=== PATIENT | female | born 1945 | race African-American/Black ===

== ENCOUNTER 2019-06-14 10:58 | Inpatient (IN) ==
[~2019-06-14 10:58] MED LIST: ASPIRIN 325 MG TABLET PO ONE; DIAZEPAM 5 MG TABLET PO ONE; MAGNESIUM SULF RIDER 2 GM in PREMIX 1 EACH IV PRN; POTASSIUM CHLORIDE RIDER 10 MEQ in PREMIX 1 EACH IV PRN; diphenhydrAMINE CAP 25 MG CAPSULE PO ONE
[2019-06-14] MEDS ORDERED: DIAZEPAM 5 MG TABLET ONE (11:34)
[2019-06-14] MEDS ORDERED: diphenhydrAMINE CAP 25 MG CAPSULE ONE (11:34)
[2019-06-14] MEDS ORDERED: ASPIRIN 325 MG TABLET ONE (11:34)
[2019-06-14] MEDS ORDERED: HEPARIN/NACL 0.9% 2 UNITS/ML 1,000 ML IV ONE (11:34)
[2019-06-14] MEDS ORDERED: LIDOCAINE 1% 20 ML VIAL ONE (11:34)
[2019-06-14 11:36] LABS: Basophils % 0.5 % (0.0-0.8); Eosinophils # 0.2 10*3/uL (0.0-0.87); Eosinophils % 2.1 % (0.00-10.9); Hematocrit 42.4 VOL% (35.7-47.0); Hemoglobin 13.9 GM/DL (12.0-16.0); Immature Granulocytes % 0.3 %; Immature Granulocytes Absolute 0.03 #; Lymphocytes % 35.1 % (21.3-54.2); Mean Corpuscular HGB Conc 32.8 GM/DL (32-36); Mean Corpuscular Volume 89.3 FL (87-102); Mean Platelet Volume 10.7 FL (9.6-12.0); Monocytes % 9.3 % (1.7-12.7); Neutrophils % 52.7 % (38.7-73.9); Platelet Count 278 T/CUMM (130-400); Red Blood Count 4.75 MC/CUMM (3.8-5.5); White Blood Count 8.6 T/CUMM (4-12)
[2019-06-14] MEDS: SODIUM CHLORIDE 0.9% 1,000 ML IV SCH ×3 (11:37→17:33)
[2019-06-14 11:45] LABS: PT Patient Result 10.5 SECS (9.6-12.2)
[2019-06-14] MEDS ORDERED: MIDAZOLAM 2 MG/2 ML VIAL ONE (13:49)
[2019-06-14] MEDS ORDERED: HYDROmorphone 2 MG/1 ML VIAL ONE (13:49)
[2019-06-14] MEDS ORDERED: LABETALOL 20 MG/4 ML SYRINGE IV ONE ×2 (14:24→15:18)
[2019-06-14] MEDS ORDERED: BIVALIRUDIN 250 MG VIAL IV ONE (14:41)
[2019-06-14] MEDS ORDERED: HEPARIN/NACL 0.9% 2 UNITS/ML 500 ML IV ONE (14:46)
[2019-06-14] MEDS ORDERED: TICAGRELOR 90 MG TABLET ONE (15:18)
[2019-06-14] MEDS ORDERED: GLUCAGON 1 MG VIAL IM PRN (15:26)
[2019-06-14] MEDS ORDERED: NITROGLYCERIN SL 0.4 MG TABLET SL PRN (15:26)
[2019-06-14] MEDS ORDERED: ZALEPLON 5 MG CAPSULE PO PRN (15:26)
[2019-06-14] MEDS ORDERED: ONDANSETRON 4 MG/2 ML VIAL IV PRN (15:26)
[2019-06-14] MEDS ORDERED: DEXTROSE 50% 25 GM/50 ML VIAL IV PRN (15:26)
[2019-06-14] MEDS: INSULIN NPH/REGULAR 70/30 100 UNIT/ML SUBCUT SCH (17:21)
[2019-06-14 20:42] LABS: Basophils # 0.1 10*3/uL (0.0-0.2); Basophils % 0.3 % (0.0-0.8); Eosinophils # 0.1 10*3/uL (0.0-0.87); Eosinophils % 0.5 % (0.00-10.9); Hematocrit 29.2 VOL% (35.7-47.0); Immature Granulocytes Absolute 0.15 #; Lymphocytes % 26.7 % (21.3-54.2); Mean Corpuscular HGB Conc 30.8 GM/DL (32-36); Mean Corpuscular Volume 94.5 FL (87-102); Mean Platelet Volume 11.3 FL (9.6-12.0); Monocytes % 6.5 % (1.7-12.7); Platelet Count 252 T/CUMM (130-400); Red Blood Count 3.09 MC/CUMM (3.8-5.5); Red Cell Distribution Width 13.2 % (9.3-17.3); White Blood Count 14.9 T/CUMM (4-12)
[2019-06-14 20:58] LABS: Calcium 7.6 MG/DL (8.5-10.1); Osmolality,Calculated 286.1 MOS/KG (273-304)
[2019-06-14] MEDS ORDERED: METOPROLOL TARTRATE 100 MG TABLET PO SCH (21:00)
[2019-06-14] MEDS ORDERED: ATROPINE 1 MG/10 ML SYRINGE IV ONE ×2 (21:12→21:30)
[2019-06-14] MEDS ORDERED: SODIUM CHLORIDE 0.9% 1,000 ML IV ONE ×2 (21:15→22:10)
[2019-06-14] MEDS ORDERED: NOREPINEPHRINE 8 MG in SODIUM CHLORIDE 0.9% 242 ML IV PRN (21:16)
[2019-06-14] MEDS ORDERED: ETOMIDATE 20 MG/10 ML VIAL IV ONE (21:20)
[2019-06-14] MEDS ORDERED: ROCURONIUM 100 MG/10 ML VIAL IV ONE (21:20)
[2019-06-14] MEDS ORDERED: ATROPINE 1 MG/10 ML SYRINGE ONE (21:23)
[2019-06-14] MEDS ORDERED: PHENYLEPHRINE DRIP 40 MG/250 ML PREMIX IV ONE (21:48)
[2019-06-14 23:05] LABS: Hematocrit 32.7 VOL% (35.7-47.0)
[2019-06-14] MEDS ORDERED: SODIUM CHLORIDE 0.9% 1,000 ML IV PRN (23:22)
[2019-06-14 23:45] LABS: Hematocrit 35.7 VOL% (35.7-47.0)
[2019-06-15] MEDS ORDERED: VANCOMYCIN INJ 1,750 MG in SODIUM CHLORIDE 0.9% 500 ML IV SCH
[2019-06-15] MEDS ORDERED: ceFAZolin 1,000 MG VIAL ONE (01:00)
[2019-06-15] MEDS ORDERED: SEVOFLURANE 1 UNIT/15 MINUTE INH ONE (02:32)
[2019-06-15] MEDS ORDERED: SODIUM CHLORIDE 0.9% 1,000 ML IV ONE ×2 (02:33→03:59)
[2019-06-15] MEDS ORDERED: MIDAZOLAM 10 MG/2 ML VIAL ONE (02:33)
[2019-06-15] MEDS ORDERED: ROCURONIUM 100 MG/10 ML VIAL IV ONE (02:33)
[2019-06-15] MEDS: TICAGRELOR 90 MG TABLET PO SCH ×3 (03:29→20:09)
[2019-06-15 04:08] LABS: Calcium 6.7 MG/DL (8.5-10.1); Osmolality,Calculated 291.3 MOS/KG (273-304)
[2019-06-15] MEDS: SODIUM CHLORIDE 0.9% 1,000 ML IV SCH ×3 (04:10→19:47)
[2019-06-15] MEDS: MEROPENEM 500 MG in SODIUM CHLORIDE 0.9% 100 ML IV SCH ×3 (04:20→19:46)
[2019-06-15 05:17] LABS: Basophils # 0.1 10*3/uL (0.0-0.2); Basophils % 0.4 % (0.0-0.8); Hematocrit 44.9 VOL% (35.7-47.0); Immature Granulocytes % 2.7 %; Immature Granulocytes Absolute 0.77 #; Lymphocytes # 1.9 10*3/uL (1.4-4.0); Lymphocytes % 6.6 % (21.3-54.2); Mean Corpuscular HGB Conc 32.1 GM/DL (32-36); Mean Corpuscular Volume 92.2 FL (87-102); Mean Platelet Volume 10.9 FL (9.6-12.0); NRBC # 0.11 10*3/uL; Neutrophils % 87.3 % (38.7-73.9); Red Cell Distribution Width 14.1 % (9.3-17.3)
[2019-06-15 05:23] LABS: Hemoglobin 14.4 GM/DL (12.0-16.0); Platelet Count 142 T/CUMM (130-400); Red Blood Count 4.87 MC/CUMM (3.8-5.5); White Blood Count 28.1 T/CUMM (4-12)
[2019-06-15] MEDS: NOREPINEPHRINE 16 MG in SODIUM CHLORIDE 0.9% 234 ML IV PRN ×3 (05:56→22:36)
[2019-06-15 06:05] LABS: Calcium 6.7 MG/DL (8.5-10.1); Osmolality,Calculated 293.8 MOS/KG (273-304)
[2019-06-15] MEDS ORDERED: DEXTROSE 50% 25 GM/50 ML VIAL IV ONE (06:19)
[2019-06-15] MEDS ORDERED: SODIUM POLYSTYRENE SULFATE 15 GM/60 ML BOTTLE NG ONE (06:19)
[2019-06-15] MEDS ORDERED: INSULIN REGULAR 100 UNIT/ML IV ONE (06:20)
[2019-06-15 06:36] LABS: ABG Base Excess -13.9 MMOL/L (-2.5-2.5); ABG HCO3 11.5 MMOL/L (20-26); ABG Oxygen Saturation 99.6 % (95-100); ABG PCO2 26.8 MM HG (35-48); ABG PH 7.252 (7.35-7.45); ABG TCO2 12.4 MMOL/L (23-27)
[2019-06-15 06:52] LABS: Band Neutrophils 13 % (0-10); Hypersegmented Neutrophil 2+; Lymphocytes 4 % (20-55); Metamyelocytes 1 %; Myelocytes 1 %; Nucleated Red Blood Cells 2 (0-5); Platelet Estimate Decreased; Segmented Neutrophils 78 % (50-85)
[2019-06-15 06:53] LABS: Total Cells Counted 100
[2019-06-15] MEDS ORDERED: CALCIUM GLUCONATE 2,000 MG in SODIUM CHLORIDE 0.9% 100 ML IV ONE (07:00)
[2019-06-15] MEDS ORDERED: lisinopriL 10 MG TABLET PO SCH (09:00)
[2019-06-15] MEDS ORDERED: ASPIRIN CHEW 81 MG TABLET PO SCH (09:00)
[2019-06-15] MEDS ORDERED: PANTOPRAZOLE 40 MG TABLET PO SCH (09:00)
[2019-06-15] MEDS ORDERED: SIMVASTATIN 10 MG TABLET PO SCH (09:00)
[2019-06-15] MEDS ORDERED: hydroCHLOROthiazide 25 MG TABLET PO SCH (09:00)
[2019-06-15] MEDS: INSULIN NPH/REGULAR 70/30 100 UNIT/ML SUBCUT SCH ×2 (09:25→18:35)
[2019-06-15 10:31] LABS: ABG HCO3 12.2 MMOL/L (20-26); ABG Oxygen Saturation 98.6 % (95-100); ABG PCO2 24.4 MM HG (35-48); ABG PH 7.317 (7.35-7.45); ABG PO2 184.3 MM HG (80-95)
[2019-06-15] MEDS: PANTOPRAZOLE 40 MG VIAL IV SCH (11:44)
[2019-06-15] MEDS ORDERED: ACETAMINOPHEN 650 MG SUPP RECTAL PRN (14:19)
[2019-06-15 15:37] LABS: Hematocrit 39.6 VOL% (35.7-47.0); Hemoglobin 13.3 GM/DL (12.0-16.0)
[2019-06-16] MEDS: SODIUM CHLORIDE 0.9% 1,000 ML IV SCH ×2 (03:58→11:59)
[2019-06-16] MEDS: MEROPENEM 500 MG in SODIUM CHLORIDE 0.9% 100 ML IV SCH ×2 (04:02→15:45)
[2019-06-16 06:03] LABS: Calcium 6.8 MG/DL (8.5-10.1); Osmolality,Calculated 302.7 MOS/KG (273-304)
[2019-06-16 08:19] LABS: ABG Base Excess -8.6 MMOL/L (-2.5-2.5); ABG HCO3 17.5 MMOL/L (20-26); ABG Oxygen Saturation 97.2 % (95-100); ABG PCO2 25.1 MM HG (35-48); ABG PH 7.387 (7.35-7.45); ABG PO2 91.3 MM HG (80-95); ABG TCO2 13.6 MMOL/L (23-27)
[2019-06-16] MEDS: INSULIN NPH/REGULAR 70/30 100 UNIT/ML SUBCUT SCH ×2 (08:32→17:28)
[2019-06-16] MEDS: PANTOPRAZOLE 40 MG VIAL IV SCH (08:42)
[2019-06-16] MEDS: TICAGRELOR 90 MG TABLET PO SCH ×2 (08:42→20:27)
[2019-06-16] MEDS ORDERED: GLUCAGON 1 MG VIAL IM PRN (12:54)
[2019-06-16] MEDS ORDERED: DEXTROSE 50% 25 GM/50 ML VIAL IV PRN (12:54)
[2019-06-16] MEDS: SODIUM BICARB INJ 50 MEQ in SODIUM CHLORIDE 0.45% 1,000 ML IV SCH ×2 (13:58→21:14)
[2019-06-16] MEDS ORDERED: BISOPROLOL 5 MG TABLET PO ONE (15:32)
[2019-06-16] MEDS: INSULIN LISPRO 100 UNIT/ML SUBCUT SCH (18:38)
[2019-06-17] MEDS: INSULIN LISPRO 100 UNIT/ML SUBCUT SCH ×4 (00:37→18:34)
[2019-06-17] MEDS: MEROPENEM 500 MG in SODIUM CHLORIDE 0.9% 100 ML IV SCH ×2 (04:42→15:31)
[2019-06-17] MEDS: SODIUM BICARB INJ 50 MEQ in SODIUM CHLORIDE 0.45% 1,000 ML IV SCH ×3 (04:53→18:33)
[2019-06-17 05:05] LABS: ABG Base Excess -5.1 MMOL/L (-2.5-2.5); ABG HCO3 20.2 MMOL/L (20-26); ABG Oxygen Saturation 98.9 % (95-100); ABG PCO2 32.3 MM HG (35-48); ABG PH 7.382 (7.35-7.45); ABG TCO2 17.5 MMOL/L (23-27); Basophils % 0.2 % (0.0-0.8); Eosinophils % 0.1 % (0.00-10.9); Hematocrit 27.6 VOL% (35.7-47.0); Hemoglobin 9.2 GM/DL (12.0-16.0); Immature Granulocytes % 2.2 %; Immature Granulocytes Absolute 0.36 #; Lymphocytes # 1.1 10*3/uL (1.4-4.0); Lymphocytes % 6.9 % (21.3-54.2); Mean Corpuscular HGB Conc 33.3 GM/DL (32-36); Mean Corpuscular Volume 89.6 FL (87-102); Mean Platelet Volume 11.9 FL (9.6-12.0); Monocytes % 5.7 % (1.7-12.7); NRBC # 0.02 10*3/uL; Neutrophils % 84.9 % (38.7-73.9); Platelet Count 100 T/CUMM (130-400); Red Blood Count 3.08 MC/CUMM (3.8-5.5); Red Cell Distribution Width 15.6 % (9.3-17.3); White Blood Count 16.5 T/CUMM (4-12)
[2019-06-17 05:24] LABS: Band Neutrophils 2 % (0-10); Eosinophils 1 % (0-10); Lymphocytes 4 % (20-55); Platelet Estimate Decreased; Segmented Neutrophils 91 % (50-85); Total Cells Counted 100
[2019-06-17 05:25] LABS: Hypochromasia 1+
[2019-06-17 05:28] LABS: Osmolality,Calculated 304.1 MOS/KG (273-304)
[2019-06-17] MEDS: PANTOPRAZOLE 40 MG VIAL IV SCH (08:59)
[2019-06-17] MEDS: BISOPROLOL 5 MG TABLET PO SCH ×2 (09:00→21:15)
[2019-06-17] MEDS ORDERED: MAGNESIUM SULF RIDER 2 GM in PREMIX 1 EACH IV PRN (09:08)
[2019-06-17] MEDS ORDERED: MAGNESIUM SULF RIDER 4 GM in PREMIX 1 EACH IV PRN (09:08)
[2019-06-17] MEDS: TICAGRELOR 90 MG TABLET PO SCH ×2 (09:13→21:15)
[2019-06-17] MEDS: INSULIN NPH/REGULAR 70/30 100 UNIT/ML SUBCUT SCH ×2 (10:16→18:34)
[2019-06-17] MEDS: FAMOTIDINE 20 MG/2 ML VIAL IV SCH (10:20)
[2019-06-17] MEDS ORDERED: VANCOMYCIN INJ 1,750 MG in SODIUM CHLORIDE 0.9% 500 ML IV PRN (11:14)
[2019-06-17] MEDS ORDERED: VANCOMYCIN INJ 1,750 MG in SODIUM CHLORIDE 0.9% 500 ML IV ONE (12:00)
[2019-06-17 15:42] LABS: Basophils % 0.3 % (0.0-0.8); Eosinophils # 0.1 10*3/uL (0.0-0.87); Eosinophils % 0.6 % (0.00-10.9); Hematocrit 29.9 VOL% (35.7-47.0); Hemoglobin 9.9 GM/DL (12.0-16.0); Immature Granulocytes % 2.6 %; Lymphocytes % 6.5 % (21.3-54.2); Mean Corpuscular HGB Conc 33.1 GM/DL (32-36); Mean Corpuscular Volume 91.2 FL (87-102); Monocytes % 7.4 % (1.7-12.7); NRBC # 0.03 10*3/uL; Neutrophils % 82.6 % (38.7-73.9); Platelet Count 102 T/CUMM (130-400); Red Blood Count 3.28 MC/CUMM (3.8-5.5); Red Cell Distribution Width 15.6 % (9.3-17.3); White Blood Count 15.5 T/CUMM (4-12)
[2019-06-17 16:35] LABS: Eosinophils 1 % (0-10); Lymphocytes 11 % (20-55); Segmented Neutrophils 83 % (50-85); Total Cells Counted 100
[2019-06-18] MEDS: INSULIN LISPRO 100 UNIT/ML SUBCUT SCH ×4 (01:03→17:34)
[2019-06-18] MEDS: MEROPENEM 500 MG in SODIUM CHLORIDE 0.9% 100 ML IV SCH ×2 (03:18→15:20)
[2019-06-18] MEDS: SODIUM BICARB INJ 50 MEQ in SODIUM CHLORIDE 0.45% 1,000 ML IV SCH ×3 (03:24→17:41)
[2019-06-18 03:38] LABS: ABG Base Excess -2.2 MMOL/L (-2.5-2.5); ABG HCO3 22.6 MMOL/L (20-26); ABG Oxygen Saturation 99.1 % (95-100); ABG PCO2 34.7 MM HG (35-48); ABG PH 7.409 (7.35-7.45)
[2019-06-18 03:42] LABS: Basophils % 0.2 % (0.0-0.8); Eosinophils # 0.2 10*3/uL (0.0-0.87); Hematocrit 27.3 VOL% (35.7-47.0); Hemoglobin 9.1 GM/DL (12.0-16.0); Immature Granulocytes % 1.1 %; Immature Granulocytes Absolute 0.17 #; Lymphocytes # 1.1 10*3/uL (1.4-4.0); Lymphocytes % 7.3 % (21.3-54.2); Mean Corpuscular HGB Conc 33.3 GM/DL (32-36); Mean Corpuscular Volume 89.5 FL (87-102); Mean Platelet Volume 11.9 FL (9.6-12.0); Monocytes % 8.3 % (1.7-12.7); NRBC # 0.05 10*3/uL; Neutrophils % 82.1 % (38.7-73.9); Red Blood Count 3.05 MC/CUMM (3.8-5.5); Red Cell Distribution Width 15.3 % (9.3-17.3); White Blood Count 15.3 T/CUMM (4-12)
[2019-06-18 03:43] LABS: Platelet Count 98 T/CUMM (130-400)
[2019-06-18 03:52] LABS: Calcium 7.6 MG/DL (8.5-10.1); Osmolality,Calculated 305.7 MOS/KG (273-304)
[2019-06-18 03:57] LABS: Prealbumin 7.8 MG/DL (20-40)
[2019-06-18 03:59] LABS: Lymphocytes 8 % (20-55); Platelet Estimate Decreased; Segmented Neutrophils 89 % (50-85); Total Cells Counted 100
[2019-06-18 04:00] LABS: Hypochromasia 1+
[2019-06-18] MEDS: FAMOTIDINE 20 MG/2 ML VIAL IV SCH (08:17)
[2019-06-18] MEDS: INSULIN NPH/REGULAR 70/30 100 UNIT/ML SUBCUT SCH ×2 (08:18→17:27)
[2019-06-18] MEDS: BISOPROLOL 5 MG TABLET PO SCH ×2 (08:23→21:12)
[2019-06-18] MEDS: TICAGRELOR 90 MG TABLET PO SCH ×2 (08:23→21:14)
[2019-06-18] MEDS ORDERED: amLODIPine 5 MG TABLET PO ONE (09:09)
[2019-06-18] MEDS ORDERED: POTASSIUM CHLORIDE 20 MEQ/15 ML UDCUP PO ONE (10:18)
[2019-06-18 15:57] LABS: Basophils % 0.2 % (0.0-0.8); Eosinophils # 0.2 10*3/uL (0.0-0.87); Eosinophils % 1.3 % (0.00-10.9); Hemoglobin 8.6 GM/DL (12.0-16.0); Immature Granulocytes % 1.3 %; Immature Granulocytes Absolute 0.19 #; Lymphocytes # 1.1 10*3/uL (1.4-4.0); Lymphocytes % 7.6 % (21.3-54.2); Mean Corpuscular HGB Conc 33.1 GM/DL (32-36); Mean Corpuscular Volume 91.2 FL (87-102); Mean Platelet Volume 12.3 FL (9.6-12.0); Monocytes % 8.9 % (1.7-12.7); NRBC # 0.04 10*3/uL; Neutrophils % 80.7 % (38.7-73.9); Platelet Count 99 T/CUMM (130-400); Red Blood Count 2.85 MC/CUMM (3.8-5.5); Red Cell Distribution Width 15.2 % (9.3-17.3); White Blood Count 14.7 T/CUMM (4-12)
[2019-06-18 17:58] LABS: Platelet Estimate Decreased
[2019-06-18] MEDS: amLODIPine 5 MG TABLET PO SCH (21:13)
[2019-06-19] MEDS: INSULIN LISPRO 100 UNIT/ML SUBCUT SCH ×4 (00:21→17:58)
[2019-06-19 04:26] LABS: ABG HCO3 23.4 MMOL/L (20-26); ABG Oxygen Saturation 97.3 % (95-100); ABG PCO2 37.5 MM HG (35-48); ABG PH 7.413 (7.35-7.45); ABG TCO2 24.5 MMOL/L (23-27)
[2019-06-19 04:41] LABS: Basophils % 0.3 % (0.0-0.8); Eosinophils # 0.3 10*3/uL (0.0-0.87); Eosinophils % 1.8 % (0.00-10.9); Hematocrit 27.8 VOL% (35.7-47.0); Hemoglobin 9.1 GM/DL (12.0-16.0); Immature Granulocytes % 1.6 %; Immature Granulocytes Absolute 0.25 #; Lymphocytes # 1.4 10*3/uL (1.4-4.0); Lymphocytes % 8.6 % (21.3-54.2); Mean Corpuscular HGB Conc 32.7 GM/DL (32-36); Mean Corpuscular Volume 92.1 FL (87-102); Mean Platelet Volume 12.3 FL (9.6-12.0); Monocytes % 9.6 % (1.7-12.7); NRBC # 0.04 10*3/uL; Neutrophils % 78.1 % (38.7-73.9); Platelet Count 124 T/CUMM (130-400); Red Blood Count 3.02 MC/CUMM (3.8-5.5); Red Cell Distribution Width 15.2 % (9.3-17.3); White Blood Count 15.8 T/CUMM (4-12)
[2019-06-19] MEDS: MEROPENEM 500 MG in SODIUM CHLORIDE 0.9% 100 ML IV SCH ×2 (04:44→16:14)
[2019-06-19 05:07] LABS: Calcium 7.2 MG/DL (8.5-10.1); Osmolality,Calculated 306.4 MOS/KG (273-304)
[2019-06-19 05:08] LABS: Band Neutrophils 7 % (0-10); Eosinophils 2 % (0-10); Lymphocytes 7 % (20-55); Platelet Estimate Decreased; Segmented Neutrophils 78 % (50-85); Total Cells Counted 100
[2019-06-19 05:09] LABS: Hypochromasia 1+
[2019-06-19] MEDS: SODIUM BICARB INJ 50 MEQ in SODIUM CHLORIDE 0.45% 1,000 ML IV SCH ×2 (05:53→07:52)
[2019-06-19] MEDS ORDERED: DEXTROSE 5% 1,000 ML IV SCH (08:00)
[2019-06-19] MEDS: FAMOTIDINE 20 MG/2 ML VIAL IV SCH (08:44)
[2019-06-19] MEDS: TICAGRELOR 90 MG TABLET PO SCH ×2 (08:45→20:26)
[2019-06-19] MEDS: BISOPROLOL 5 MG TABLET PO SCH ×2 (08:45→20:27)
[2019-06-19] MEDS: amLODIPine 5 MG TABLET PO SCH ×2 (08:45→20:27)
[2019-06-19] MEDS: DEXMEDETOMIDINE 200 MCG in SODIUM CHLORIDE 0.9% 48 ML IV PRN ×2 (08:57→14:29)
[2019-06-19] MEDS: INSULIN NPH/REGULAR 70/30 100 UNIT/ML SUBCUT SCH ×2 (09:56→16:29)
[2019-06-19] MEDS: methylPREDNISolone SOD SUC 40 MG/1 ML VIAL IV SCH ×2 (10:26→17:57)
[2019-06-19] MEDS ORDERED: VANCOMYCIN INJ 1,750 MG in SODIUM CHLORIDE 0.9% 500 ML IV SCH (11:00)
[2019-06-19] MEDS: DEXMEDETOMIDINE 400 MCG in SODIUM CHLORIDE 0.9% 96 ML IV PRN ×2 (17:10→22:36)
[2019-06-20] MEDS: INSULIN LISPRO 100 UNIT/ML SUBCUT SCH ×3 (00:28→11:39)
[2019-06-20] MEDS: methylPREDNISolone SOD SUC 40 MG/1 ML VIAL IV SCH ×2 (01:48→08:58)
[2019-06-20 03:22] LABS: ABG Base Excess -0.2 MMOL/L (-2.5-2.5); ABG HCO3 24.3 MMOL/L (20-26); ABG Oxygen Saturation 96.9 % (95-100); ABG PCO2 34.2 MM HG (35-48); ABG PH 7.443 (7.35-7.45); ABG PO2 85.9 MM HG (80-95); ABG TCO2 20.8 MMOL/L (23-27); Allen Test Positive; Pt O2 Delivery Device Ventilator
[2019-06-20 03:50] LABS: Basophils # 0.1 10*3/uL (0.0-0.2); Basophils % 0.3 % (0.0-0.8); Hematocrit 30.8 VOL% (35.7-47.0); Hemoglobin 9.9 GM/DL (12.0-16.0); Immature Granulocytes Absolute 0.39 #; Lymphocytes # 1.1 10*3/uL (1.4-4.0); Lymphocytes % 5.5 % (21.3-54.2); Mean Corpuscular HGB Conc 32.1 GM/DL (32-36); Mean Corpuscular Volume 91.9 FL (87-102); Mean Platelet Volume 11.9 FL (9.6-12.0); Monocytes % 5.6 % (1.7-12.7); NRBC # 0.04 10*3/uL; Neutrophils % 86.6 % (38.7-73.9); Platelet Count 171 T/CUMM (130-400); Red Blood Count 3.35 MC/CUMM (3.8-5.5); Red Cell Distribution Width 14.5 % (9.3-17.3); White Blood Count 19.3 T/CUMM (4-12)
[2019-06-20] MEDS: DEXMEDETOMIDINE 400 MCG in SODIUM CHLORIDE 0.9% 96 ML IV PRN ×2 (03:56→09:31)
[2019-06-20 04:04] LABS: Calcium 8.1 MG/DL (8.5-10.1); Osmolality,Calculated 303.8 MOS/KG (273-304)
[2019-06-20] MEDS: MEROPENEM 500 MG in SODIUM CHLORIDE 0.9% 100 ML IV SCH (04:45)
[2019-06-20] MEDS: BISOPROLOL 5 MG TABLET PO SCH (09:02)
[2019-06-20] MEDS: TICAGRELOR 90 MG TABLET PO SCH (09:03)
[2019-06-20] MEDS: FAMOTIDINE 20 MG/2 ML VIAL IV SCH (09:03)
[2019-06-20] MEDS: INSULIN NPH/REGULAR 70/30 100 UNIT/ML SUBCUT SCH (09:04)
[2019-06-20 10:15] VITALS: BP 131/63
[2019-06-20] MEDS ORDERED: SODIUM CHLORIDE 0.45% 1,000 ML IV SCH (11:30)
[2019-06-20] MEDS: amLODIPine 5 MG TABLET PO SCH (11:38)
== END 2019-06-20 12:35 | DRG 907 ==
LOC: SUATTDRO → N.CL 10:58 → N.TELEN 16:11 → N.CC 21:44
PROVIDERS: ADMIT Internal Medicine; ATTEND Internal Medicine Cardiovascular Disease
PROC: CLCCHCL (ICD-10-PCS; 2019-06-14 13:45)

== ENCOUNTER 2019-06-30 13:07 | Inpatient (IN) ==
[2019-06-30] MEDS ORDERED: ALBUTEROL 2.5 MG/3 ML NEB RESP TX PRN (14:01)
[2019-06-30] MEDS ORDERED: ONDANSETRON 4 MG/2 ML VIAL IV PRN (14:01)
[2019-06-30 14:23] LABS: Basophils % 0.1 % (0.0-0.8); Hematocrit 19.8 VOL% (35.7-47.0); Hemoglobin 6.7 GM/DL (12.0-16.0); Immature Granulocytes % 2.2 %; Immature Granulocytes Absolute 0.68 #; Lymphocytes # 0.7 10*3/uL (1.4-4.0); Lymphocytes % 2.1 % (21.3-54.2); Mean Corpuscular HGB Conc 33.8 GM/DL (32-36); Monocytes % 4.2 % (1.7-12.7); NRBC # 0.02 10*3/uL; Neutrophils % 91.4 % (38.7-73.9); Platelet Count 340 T/CUMM (130-400); Red Cell Distribution Width 13.4 % (9.3-17.3); White Blood Count 30.8 T/CUMM (4-12)
[2019-06-30 14:31] LABS: INR 1.1; PT Patient Result 11.7 SECS (9.6-12.2)
[2019-06-30] MEDS ORDERED: SODIUM CHLORIDE 0.9% 1,000 ML IV PRN (14:32)
[2019-06-30 14:35] LABS: ABG Base Excess 3.3 MMOL/L (-2.5-2.5); ABG HCO3 27.4 MMOL/L (20-26); ABG Oxygen Saturation 97.5 % (95-100); ABG PCO2 33.5 MM HG (35-48); ABG PH 7.504 (7.35-7.45)
[2019-06-30 14:36] LABS: Allen Test Positive
[2019-06-30 14:41] LABS: Albumin 2.5 G/DL (3.4-5.0); Bilirubin,Total 0.9 MG/DL (0.2-1.0); Calcium 7.9 MG/DL (8.5-10.1); Osmolality,Calculated 305.7 MOS/KG (273-304)
[2019-06-30 14:42] LABS: Anisocytosis 1+; Lymphocytes 1 % (20-55); Polychromasia Few; Segmented Neutrophils 94 % (50-85); Total Cells Counted 100
[2019-06-30 14:43] LABS: Burr Cells Few; Elliptocytes Few; Hypochromasia 1+; Platelet Estimate Adequate
[2019-06-30] MEDS: PANTOPRAZOLE 40 MG VIAL IV SCH ×2 (16:04→20:50)
[2019-06-30] MEDS: SODIUM CHLORIDE 0.9% 1,000 ML IV SCH (16:05)
[2019-06-30] MEDS ORDERED: POLYETHYLENE GLYCOL 3350/ELECTROLYTES 4,000 ML BOTTLE PO ONE (18:00)
[2019-06-30 19:20] LABS: Apearance,Urine CLOUDY (Clear); Bilirubin,Urine Negative (Negative); Blood, Urine Large mg/dL (Negative); Glucose,Urine (UA) 50 mg/dL (Negative); Hyaline Casts,Urine 3 /LPF (0-3); Ketones,Urine Negative (Negative); Mucus,Urine Occasional /LPF (Occasional); Nitrite,Urine Negative (Negative); Protein,Urine 30 MG/DL; RBC,Urine 950 /HPF (0-4); Urine Color Yellow (Yellow); Urine Specific Gravity 1.014 (1.001-1.035); Urine Urobilinogen < 2.0 EU/DL (0.2-1.0); WBC,Urine 196 /HPF (0-6)
[2019-06-30 23:04] LABS: Hematocrit 27.4 VOL% (35.7-47.0); Hemoglobin 9.4 GM/DL (12.0-16.0)
[2019-07-01] MEDS: SODIUM CHLORIDE 0.9% 1,000 ML IV SCH ×3 (00:06→17:06)
[2019-07-01 05:21] LABS: Basophils % 0.1 % (0.0-0.8); Eosinophils % 0.1 % (0.00-10.9); Hematocrit 25.4 VOL% (35.7-47.0); Hemoglobin 8.6 GM/DL (12.0-16.0); Immature Granulocytes % 2.5 %; Immature Granulocytes Absolute 0.71 #; Lymphocytes # 2.4 10*3/uL (1.4-4.0); Lymphocytes % 8.3 % (21.3-54.2); Mean Corpuscular HGB Conc 33.9 GM/DL (32-36); Mean Corpuscular Volume 89.1 FL (87-102); Mean Platelet Volume 12.6 FL (9.6-12.0); Monocytes % 9.2 % (1.7-12.7); NRBC # 0.15 10*3/uL; Neutrophils % 79.8 % (38.7-73.9); Platelet Count 222 T/CUMM (130-400); Red Blood Count 2.85 MC/CUMM (3.8-5.5); Red Cell Distribution Width 14.2 % (9.3-17.3); White Blood Count 28.3 T/CUMM (4-12)
[2019-07-01 05:52] LABS: Band Neutrophils 1 % (0-10); Hypochromasia 1+; Lymphocytes 2 % (20-55); Nucleated Red Blood Cells 1 (0-5); Segmented Neutrophils 93 % (50-85); Total Cells Counted 100
[2019-07-01 05:53] LABS: Microcytosis 1+; Polychromasia Slight
[2019-07-01 05:55] LABS: Albumin 2.3 G/DL (3.4-5.0); Bilirubin,Total 1.8 MG/DL (0.2-1.0); Calcium 7.6 MG/DL (8.5-10.1); Osmolality,Calculated 306.4 MOS/KG (273-304); Total Protein 4.6 G/DL (6.4-8.3)
[2019-07-01] MEDS: PANTOPRAZOLE 40 MG VIAL IV SCH ×2 (08:17→21:25)
[2019-07-01] MEDS ORDERED: LIDOCAINE 2% 5 ML VIAL ONE ×2 (09:00→09:46)
[2019-07-01] MEDS ORDERED: KETAMINE 500 MG/10 ML VIAL ONE (09:46)
[2019-07-01] MEDS ORDERED: PHENYLEPHRINE 1 MG/10 ML SYRINGE IV ONE (09:46)
[2019-07-01] MEDS: MENTHOL/ZINC OXIDE OINT 71 GM JAR TOP SCH ×2 (15:00→21:27)
[2019-07-01] MEDS: INSULIN REGULAR 100 UNIT/ML SUBCUT SCH ×2 (17:06→21:25)
[2019-07-02] MEDS: INSULIN REGULAR 100 UNIT/ML SUBCUT SCH ×6 (00:55→20:16)
[2019-07-02 05:08] LABS: Basophils % 0.1 % (0.0-0.8); Eosinophils # 0.2 10*3/uL (0.0-0.87); Eosinophils % 0.7 % (0.00-10.9); Hematocrit 19.7 VOL% (35.7-47.0); Hemoglobin 6.5 GM/DL (12.0-16.0); Immature Granulocytes % 3.8 %; Lymphocytes # 2.2 10*3/uL (1.4-4.0); Lymphocytes % 9.1 % (21.3-54.2); Mean Corpuscular Volume 91.6 FL (87-102); Mean Platelet Volume 12.8 FL (9.6-12.0); Monocytes % 7.7 % (1.7-12.7); NRBC # 0.35 10*3/uL; Neutrophils % 78.6 % (38.7-73.9); Platelet Count 170 T/CUMM (130-400); Red Blood Count 2.15 MC/CUMM (3.8-5.5); Red Cell Distribution Width 14.6 % (9.3-17.3); White Blood Count 23.7 T/CUMM (4-12)
[2019-07-02 05:30] LABS: Band Neutrophils 1 % (0-10); Eosinophils 2 % (0-10); Hypochromasia 1+; Lymphocytes 4 % (20-55); Nucleated Red Blood Cells 1 (0-5); Platelet Estimate Adequate; Segmented Neutrophils 88 % (50-85); Total Cells Counted 100
[2019-07-02 05:31] LABS: Microcytosis 1+
[2019-07-02 05:36] LABS: Albumin 2.2 G/DL (3.4-5.0); Calcium 7.6 MG/DL (8.5-10.1); Osmolality,Calculated 306.8 MOS/KG (273-304); Total Protein 4.5 G/DL (6.4-8.3)
[2019-07-02] MEDS ORDERED: SODIUM CHLORIDE 0.9% 1,000 ML IV PRN ×2 (06:08→06:55)
[2019-07-02] MEDS ORDERED: MAGNESIUM CITRATE 300 ML BOTTLE PO ONE (07:02)
[2019-07-02] MEDS: POLYETHYLENE GLYCOL POWDER 17 GM PACK PO SCH ×4 (08:02→20:04)
[2019-07-02] MEDS: PANTOPRAZOLE 40 MG VIAL IV SCH ×2 (08:13→20:02)
[2019-07-02] MEDS: MENTHOL/ZINC OXIDE OINT 71 GM JAR TOP SCH ×2 (08:13→20:04)
[2019-07-02] MEDS ORDERED: LIDOCAINE 2% 5 ML VIAL ONE ×2 (09:00→14:18)
[2019-07-02] MEDS ORDERED: propofoL 200 MG/20 ML VIAL IV ONE (09:00)
[2019-07-02 12:54] LABS: Hematocrit 26.5 VOL% (35.7-47.0); Hemoglobin 8.8 GM/DL (12.0-16.0)
[2019-07-02] MEDS ORDERED: ETOMIDATE 40 MG/20 ML VIAL IV ONE (14:18)
[2019-07-02 15:46] LABS: INR 1.1; PT Patient Result 11.4 SECS (9.6-12.2); Partial Thromboplastin Time < 21.0 SECS (20.8-36.0)
[2019-07-02 17:56] LABS: Hematocrit 23.3 VOL% (35.7-47.0); Hemoglobin 7.9 GM/DL (12.0-16.0)
[2019-07-03] MEDS: INSULIN REGULAR 100 UNIT/ML SUBCUT SCH ×6 (00:50→21:50)
[2019-07-03 05:06] LABS: Basophils % 0.2 % (0.0-0.8); Eosinophils # 0.2 10*3/uL (0.0-0.87); Eosinophils % 0.8 % (0.00-10.9); Hematocrit 29.9 VOL% (35.7-47.0); Hemoglobin 10.2 GM/DL (12.0-16.0); Immature Granulocytes % 2.4 %; Immature Granulocytes Absolute 0.55 #; Lymphocytes # 1.7 10*3/uL (1.4-4.0); Lymphocytes % 7.4 % (21.3-54.2); Mean Corpuscular HGB Conc 34.1 GM/DL (32-36); Mean Corpuscular Volume 87.2 FL (87-102); Mean Platelet Volume 12.6 FL (9.6-12.0); NRBC # 0.37 10*3/uL; Neutrophils % 83.2 % (38.7-73.9); Platelet Count 116 T/CUMM (130-400); Red Blood Count 3.43 MC/CUMM (3.8-5.5); Red Cell Distribution Width 14.8 % (9.3-17.3); White Blood Count 23.2 T/CUMM (4-12)
[2019-07-03 05:31] LABS: Albumin 2.1 G/DL (3.4-5.0); Bilirubin,Total 1.6 MG/DL (0.2-1.0); Calcium 7.6 MG/DL (8.5-10.1); Osmolality,Calculated 303.7 MOS/KG (273-304); Total Protein 4.4 G/DL (6.4-8.3)
[2019-07-03 05:46] LABS: Anisocytosis 1+; Band Neutrophils 1 % (0-10); Hypochromasia 2+; Lymphocytes 6 % (20-55); Macrocytosis 1+; Nucleated Red Blood Cells 2 (0-5); Platelet Estimate Decreased; Segmented Neutrophils 89 % (50-85); Total Cells Counted 100
[2019-07-03] MEDS ORDERED: FUROSEMIDE 40 MG/4 ML VIAL IV ONE (06:36)
[2019-07-03] MEDS: PANTOPRAZOLE 40 MG VIAL IV SCH ×2 (08:40→21:35)
[2019-07-03] MEDS: POLYETHYLENE GLYCOL POWDER 17 GM PACK PO SCH ×4 (08:45→21:50)
[2019-07-03] MEDS ORDERED: ASPIRIN CHEW 81 MG TABLET PO SCH (11:00)
[2019-07-03] MEDS: cefTRIAXone 1,000 MG in SYRINGE 1 EACH IV SCH (11:01)
[2019-07-03] MEDS: ASPIRIN EC 81 MG TABLET PO SCH (11:09)
[2019-07-03 12:31] LABS: Hemoglobin 10.3 GM/DL (12.0-16.0)
[2019-07-03] MEDS: MENTHOL/ZINC OXIDE OINT 71 GM JAR TOP SCH ×2 (13:46→21:50)
[2019-07-03 18:03] LABS: Hematocrit 30.7 VOL% (35.7-47.0)
[2019-07-04] MEDS: INSULIN REGULAR 100 UNIT/ML SUBCUT SCH ×6 (01:23→20:56)
[2019-07-04 06:09] LABS: Basophils % 0.1 % (0.0-0.8); Eosinophils # 0.2 10*3/uL (0.0-0.87); Eosinophils % 1.3 % (0.00-10.9); Hematocrit 29.7 VOL% (35.7-47.0); Hemoglobin 9.5 GM/DL (12.0-16.0); Immature Granulocytes % 1.5 %; Immature Granulocytes Absolute 0.26 #; Lymphocytes # 1.3 10*3/uL (1.4-4.0); Lymphocytes % 7.8 % (21.3-54.2); Mean Corpuscular Volume 91.4 FL (87-102); Mean Platelet Volume 11.7 FL (9.6-12.0); Monocytes % 6.8 % (1.7-12.7); NRBC # 0.07 10*3/uL; Neutrophils % 82.5 % (38.7-73.9); Platelet Count 102 T/CUMM (130-400); Red Blood Count 3.25 MC/CUMM (3.8-5.5); Red Cell Distribution Width 16.4 % (9.3-17.3); White Blood Count 17.1 T/CUMM (4-12)
[2019-07-04 06:33] LABS: Calcium 7.7 MG/DL (8.5-10.1); Osmolality,Calculated 299.7 MOS/KG (273-304)
[2019-07-04] MEDS: POLYETHYLENE GLYCOL POWDER 17 GM PACK PO SCH ×2 (09:14→20:58)
[2019-07-04] MEDS: ASPIRIN EC 81 MG TABLET PO SCH (09:15)
[2019-07-04] MEDS: PANTOPRAZOLE 40 MG VIAL IV SCH (09:18)
[2019-07-04] MEDS: cefTRIAXone 1,000 MG in SYRINGE 1 EACH IV SCH (09:19)
[2019-07-04] MEDS: MENTHOL/ZINC OXIDE OINT 71 GM JAR TOP SCH ×2 (09:21→20:56)
[2019-07-05 04:52] LABS: Basophils % 0.1 % (0.0-0.8); Eosinophils # 0.3 10*3/uL (0.0-0.87); Eosinophils % 1.7 % (0.00-10.9); Hematocrit 27.7 VOL% (35.7-47.0); Immature Granulocytes % 1.2 %; Immature Granulocytes Absolute 0.18 #; Lymphocytes # 1.6 10*3/uL (1.4-4.0); Mean Corpuscular HGB Conc 32.5 GM/DL (32-36); Mean Corpuscular Volume 91.4 FL (87-102); Mean Platelet Volume 11.5 FL (9.6-12.0); Monocytes % 7.6 % (1.7-12.7); NRBC # 0.02 10*3/uL; Neutrophils % 78.4 % (38.7-73.9); Platelet Count 107 T/CUMM (130-400); Red Blood Count 3.03 MC/CUMM (3.8-5.5); Red Cell Distribution Width 16.5 % (9.3-17.3); White Blood Count 14.9 T/CUMM (4-12)
[2019-07-05 05:29] LABS: Calcium 7.7 MG/DL (8.5-10.1); Osmolality,Calculated 297.3 MOS/KG (273-304)
[2019-07-05] MEDS: INSULIN REGULAR 100 UNIT/ML SUBCUT SCH ×5 (07:16→20:35)
[2019-07-05] MEDS: ASPIRIN EC 81 MG TABLET PO SCH (10:13)
[2019-07-05] MEDS: cefTRIAXone 1,000 MG in SYRINGE 1 EACH IV SCH (10:13)
[2019-07-05] MEDS: MENTHOL/ZINC OXIDE OINT 71 GM JAR TOP SCH ×2 (10:14→20:36)
[2019-07-05] MEDS: POLYETHYLENE GLYCOL POWDER 17 GM PACK PO SCH ×2 (10:15→20:36)
[2019-07-05] MEDS: PANTOPRAZOLE 40 MG TABLET PO SCH (19:16)
[2019-07-06] MEDS: INSULIN REGULAR 100 UNIT/ML SUBCUT SCH ×6 (01:40→21:28)
[2019-07-06 06:10] LABS: Basophils % 0.1 % (0.0-0.8); Eosinophils # 0.3 10*3/uL (0.0-0.87); Eosinophils % 2.6 % (0.00-10.9); Hemoglobin 8.9 GM/DL (12.0-16.0); Immature Granulocytes Absolute 0.12 #; Lymphocytes # 1.3 10*3/uL (1.4-4.0); Lymphocytes % 10.6 % (21.3-54.2); Mean Corpuscular HGB Conc 31.8 GM/DL (32-36); Mean Corpuscular Volume 93.6 FL (87-102); Mean Platelet Volume 11.4 FL (9.6-12.0); Monocytes % 7.9 % (1.7-12.7); Neutrophils % 77.8 % (38.7-73.9); Platelet Count 98 T/CUMM (130-400); Red Blood Count 2.99 MC/CUMM (3.8-5.5); Red Cell Distribution Width 16.2 % (9.3-17.3); White Blood Count 12.2 T/CUMM (4-12)
[2019-07-06 06:32] LABS: Calcium 7.6 MG/DL (8.5-10.1); Osmolality,Calculated 292.6 MOS/KG (273-304)
[2019-07-06 06:50] LABS: Anisocytosis 1+; Platelet Estimate Decreased
[2019-07-06] MEDS: CLOPIDOGREL 75 MG TABLET PO SCH (10:35)
[2019-07-06] MEDS: ASPIRIN EC 81 MG TABLET PO SCH (10:35)
[2019-07-06] MEDS: cefTRIAXone 1,000 MG in SYRINGE 1 EACH IV SCH (10:35)
[2019-07-06] MEDS: POLYETHYLENE GLYCOL POWDER 17 GM PACK PO SCH ×2 (10:36→21:30)
[2019-07-06] MEDS: MENTHOL/ZINC OXIDE OINT 71 GM JAR TOP SCH ×2 (10:36→21:30)
[2019-07-06] MEDS: PANTOPRAZOLE 40 MG TABLET PO SCH (18:19)
[2019-07-06] MEDS ORDERED: ACETAMINOPHEN 325 MG TABLET PO PRN (18:50)
[2019-07-06] MEDS: ACETAMINOPHEN 325 MG TABLET PO PRN (19:09)
[2019-07-07] MEDS: INSULIN REGULAR 100 UNIT/ML SUBCUT SCH ×6 (01:19→22:23)
[2019-07-07 07:16] LABS: Basophils % 0.2 % (0.0-0.8); Eosinophils # 0.3 10*3/uL (0.0-0.87); Eosinophils % 2.5 % (0.00-10.9); Hematocrit 28.5 VOL% (35.7-47.0); Hemoglobin 9.3 GM/DL (12.0-16.0); Immature Granulocytes % 0.6 %; Immature Granulocytes Absolute 0.08 #; Lymphocytes # 1.4 10*3/uL (1.4-4.0); Lymphocytes % 10.9 % (21.3-54.2); Mean Corpuscular HGB Conc 32.6 GM/DL (32-36); Mean Corpuscular Volume 90.5 FL (87-102); Mean Platelet Volume 11.2 FL (9.6-12.0); Neutrophils % 78.8 % (38.7-73.9); Platelet Count 98 T/CUMM (130-400); Red Blood Count 3.15 MC/CUMM (3.8-5.5); Red Cell Distribution Width 15.9 % (9.3-17.3); White Blood Count 12.6 T/CUMM (4-12)
[2019-07-07 07:28] LABS: Calcium 7.6 MG/DL (8.5-10.1); Osmolality,Calculated 280.4 MOS/KG (273-304)
[2019-07-07 07:43] LABS: Platelet Estimate Decreased
[2019-07-07 07:44] LABS: Anisocytosis 2+
[2019-07-07] MEDS: CLOPIDOGREL 75 MG TABLET PO SCH (09:29)
[2019-07-07] MEDS: POLYETHYLENE GLYCOL POWDER 17 GM PACK PO SCH ×2 (09:29→22:23)
[2019-07-07] MEDS: ASPIRIN EC 81 MG TABLET PO SCH (09:29)
[2019-07-07] MEDS: MENTHOL/ZINC OXIDE OINT 71 GM JAR TOP SCH ×2 (09:29→22:23)
[2019-07-07] MEDS: cefTRIAXone 1,000 MG in SYRINGE 1 EACH IV SCH (09:58)
[2019-07-07] MEDS: PANTOPRAZOLE 40 MG TABLET PO SCH (18:24)
[2019-07-08] MEDS: INSULIN REGULAR 100 UNIT/ML SUBCUT SCH ×6 (01:37→21:40)
[2019-07-08 07:57] LABS: Basophils % 0.2 % (0.0-0.8); Eosinophils # 0.3 10*3/uL (0.0-0.87); Eosinophils % 2.9 % (0.00-10.9); Hematocrit 27.9 VOL% (35.7-47.0); Hemoglobin 8.9 GM/DL (12.0-16.0); Immature Granulocytes % 0.8 %; Immature Granulocytes Absolute 0.08 #; Lymphocytes # 1.2 10*3/uL (1.4-4.0); Lymphocytes % 12.4 % (21.3-54.2); Mean Corpuscular HGB Conc 31.9 GM/DL (32-36); Mean Corpuscular Volume 92.1 FL (87-102); Mean Platelet Volume 10.9 FL (9.6-12.0); Monocytes % 7.4 % (1.7-12.7); Neutrophils % 76.3 % (38.7-73.9); Red Blood Count 3.03 MC/CUMM (3.8-5.5); Red Cell Distribution Width 15.9 % (9.3-17.3); White Blood Count 9.9 T/CUMM (4-12)
[2019-07-08 07:58] LABS: Platelet Count 95 T/CUMM (130-400)
[2019-07-08 08:16] LABS: Calcium 7.5 MG/DL (8.5-10.1); Osmolality,Calculated 279.4 MOS/KG (273-304)
[2019-07-08] MEDS: MENTHOL/ZINC OXIDE OINT 71 GM JAR TOP SCH ×2 (09:31→21:41)
[2019-07-08] MEDS: cefTRIAXone 1,000 MG in SYRINGE 1 EACH IV SCH (09:31)
[2019-07-08] MEDS: CLOPIDOGREL 75 MG TABLET PO SCH (09:31)
[2019-07-08] MEDS: ASPIRIN EC 81 MG TABLET PO SCH (09:31)
[2019-07-08] MEDS: POLYETHYLENE GLYCOL POWDER 17 GM PACK PO SCH ×2 (09:31→21:40)
[2019-07-08] MEDS: PANTOPRAZOLE 40 MG TABLET PO SCH (17:55)
[2019-07-08] MEDS ORDERED: ZALEPLON 5 MG CAPSULE PO ONE (21:34)
[2019-07-09] MEDS: INSULIN REGULAR 100 UNIT/ML SUBCUT SCH ×6 (02:24→21:01)
[2019-07-09 05:49] LABS: Basophils % 0.3 % (0.0-0.8); Eosinophils # 0.2 10*3/uL (0.0-0.87); Eosinophils % 2.1 % (0.00-10.9); Hematocrit 28.3 VOL% (35.7-47.0); Hemoglobin 9.1 GM/DL (12.0-16.0); Immature Granulocytes % 0.7 %; Immature Granulocytes Absolute 0.07 #; Lymphocytes # 1.4 10*3/uL (1.4-4.0); Lymphocytes % 14.9 % (21.3-54.2); Mean Corpuscular HGB Conc 32.2 GM/DL (32-36); Mean Corpuscular Volume 91.3 FL (87-102); Monocytes % 7.4 % (1.7-12.7); Neutrophils % 74.6 % (38.7-73.9); Platelet Count 100 T/CUMM (130-400); Red Cell Distribution Width 15.9 % (9.3-17.3); White Blood Count 9.4 T/CUMM (4-12)
[2019-07-09 06:08] LABS: Calcium 7.6 MG/DL (8.5-10.1); Hypochromasia 1+; Osmolality,Calculated 278.4 MOS/KG (273-304)
[2019-07-09 06:09] LABS: Microcytosis 1+
[2019-07-09 06:10] LABS: Platelet Estimate Decreased
[2019-07-09] MEDS: cefTRIAXone 1,000 MG in SYRINGE 1 EACH IV SCH (08:13)
[2019-07-09] MEDS: ASPIRIN EC 81 MG TABLET PO SCH (08:14)
[2019-07-09] MEDS: MENTHOL/ZINC OXIDE OINT 71 GM JAR TOP SCH ×2 (08:14→21:00)
[2019-07-09] MEDS: CLOPIDOGREL 75 MG TABLET PO SCH (08:14)
[2019-07-09] MEDS: POLYETHYLENE GLYCOL POWDER 17 GM PACK PO SCH ×2 (08:14→21:01)
[2019-07-09] MEDS: carvediloL 6.25 MG TABLET PO SCH ×2 (08:39→21:01)
[2019-07-09] MEDS: PANTOPRAZOLE 40 MG TABLET PO SCH (16:35)
[2019-07-10] MEDS: INSULIN REGULAR 100 UNIT/ML SUBCUT SCH ×6 (00:53→20:59)
[2019-07-10 05:00] LABS: Basophils % 0.2 % (0.0-0.8); Eosinophils # 0.2 10*3/uL (0.0-0.87); Eosinophils % 2.2 % (0.00-10.9); Hematocrit 27.7 VOL% (35.7-47.0); Hemoglobin 9.1 GM/DL (12.0-16.0); Immature Granulocytes % 0.5 %; Immature Granulocytes Absolute 0.05 #; Lymphocytes # 1.5 10*3/uL (1.4-4.0); Lymphocytes % 15.5 % (21.3-54.2); Mean Corpuscular HGB Conc 32.9 GM/DL (32-36); Mean Corpuscular Volume 91.1 FL (87-102); Mean Platelet Volume 10.9 FL (9.6-12.0); Monocytes % 8.4 % (1.7-12.7); Neutrophils % 73.2 % (38.7-73.9); Platelet Count 109 T/CUMM (130-400); Red Blood Count 3.04 MC/CUMM (3.8-5.5); White Blood Count 9.6 T/CUMM (4-12)
[2019-07-10 05:23] LABS: Calcium 7.8 MG/DL (8.5-10.1); Osmolality,Calculated 276.4 MOS/KG (273-304)
[2019-07-10] MEDS: ASPIRIN EC 81 MG TABLET PO SCH (09:26)
[2019-07-10] MEDS: carvediloL 6.25 MG TABLET PO SCH ×2 (09:28→20:58)
[2019-07-10] MEDS: CLOPIDOGREL 75 MG TABLET PO SCH (09:30)
[2019-07-10] MEDS: POLYETHYLENE GLYCOL POWDER 17 GM PACK PO SCH ×2 (09:31→21:00)
[2019-07-10] MEDS: cefTRIAXone 1,000 MG in SYRINGE 1 EACH IV SCH (09:47)
[2019-07-10] MEDS: MENTHOL/ZINC OXIDE OINT 71 GM JAR TOP SCH ×2 (09:47→21:04)
[2019-07-10] MEDS: PANTOPRAZOLE 40 MG TABLET PO SCH (17:22)
[2019-07-10] MEDS: ACETAMINOPHEN 325 MG TABLET PO PRN (20:58)
[2019-07-11] MEDS: INSULIN REGULAR 100 UNIT/ML SUBCUT SCH ×4 (00:19→12:50)
[2019-07-11 05:21] LABS: Basophils % 0.4 % (0.0-0.8); Eosinophils # 0.2 10*3/uL (0.0-0.87); Eosinophils % 2.7 % (0.00-10.9); Hematocrit 28.6 VOL% (35.7-47.0); Hemoglobin 8.8 GM/DL (12.0-16.0); Immature Granulocytes % 0.4 %; Immature Granulocytes Absolute 0.03 #; Lymphocytes # 1.3 10*3/uL (1.4-4.0); Lymphocytes % 19.5 % (21.3-54.2); Mean Corpuscular HGB Conc 30.8 GM/DL (32-36); Mean Corpuscular Volume 94.4 FL (87-102); Mean Platelet Volume 10.5 FL (9.6-12.0); Monocytes % 8.4 % (1.7-12.7); Neutrophils % 68.6 % (38.7-73.9); Platelet Count 120 T/CUMM (130-400); Red Blood Count 3.03 MC/CUMM (3.8-5.5); Red Cell Distribution Width 16.3 % (9.3-17.3); White Blood Count 6.8 T/CUMM (4-12)
[2019-07-11 06:10] LABS: Osmolality,Calculated 278.4 MOS/KG (273-304)
[2019-07-11] MEDS: carvediloL 6.25 MG TABLET PO SCH (08:27)
[2019-07-11] MEDS: CLOPIDOGREL 75 MG TABLET PO SCH (08:27)
[2019-07-11] MEDS: ASPIRIN EC 81 MG TABLET PO SCH (08:27)
[2019-07-11] MEDS: POLYETHYLENE GLYCOL POWDER 17 GM PACK PO SCH (08:27)
[2019-07-11] MEDS ORDERED: LOSARTAN 25 MG TABLET PO SCH (09:30)
[2019-07-11] MEDS: MENTHOL/ZINC OXIDE OINT 71 GM JAR TOP SCH (09:45)
[2019-07-11] MEDS: ACETAMINOPHEN 325 MG TABLET PO PRN (10:50)
[2019-07-11 13:53] VITALS: BP 159/79
== END 2019-07-11 13:50 | disposition home health service (06) | DRG 813 ==
LOC: SUATTDRO 13:12 → N.ICU 13:12 → N.3E 07-03 20:38
PROVIDERS: ADMIT Internal Medicine; ATTEND Internal Medicine

== ENCOUNTER 2019-07-15 17:44 | Inpatient (IN) ==
[2019-07-15] MEDS ORDERED: FUROSEMIDE 40 MG/4 ML VIAL IV STA (18:53)
[2019-07-15] MEDS ORDERED: PIPERACILLIN/TAZOBACTAM 3,375 MG in SODIUM CHLORIDE 0.9% 100 ML IV STA (18:53)
[2019-07-15 19:02] LABS: Basophils % 0.3 % (0.0-0.8); Eosinophils # 0.1 10*3/uL (0.0-0.87); Eosinophils % 1.7 % (0.00-10.9); Hematocrit 31.6 VOL% (35.7-47.0); Hemoglobin 9.7 GM/DL (12.0-16.0); Immature Granulocytes % 0.6 %; Immature Granulocytes Absolute 0.04 #; Lymphocytes # 1.7 10*3/uL (1.4-4.0); Lymphocytes % 27.4 % (21.3-54.2); Mean Corpuscular HGB Conc 30.7 GM/DL (32-36); Mean Corpuscular Volume 95.5 FL (87-102); Mean Platelet Volume 10.3 FL (9.6-12.0); Monocytes % 11.1 % (1.7-12.7); Neutrophils % 58.9 % (38.7-73.9); Platelet Count 256 T/CUMM (130-400); Red Blood Count 3.31 MC/CUMM (3.8-5.5); Red Cell Distribution Width 16.8 % (9.3-17.3); White Blood Count 6.3 T/CUMM (4-12)
[2019-07-15 19:10] LABS: INR 1.1; PT Patient Result 11.6 SECS (9.6-12.2)
[2019-07-15 19:14] LABS: Alanine Aminotransferase 46 U/L (13-56); Albumin 2.7 G/DL (3.4-5.0); Alkaline Phosphatase 74 U/L (45-117); Amylase 95 U/L (25-115); Aspartate Amino Transferase 38 U/L (0-37); Blood Urea Nitrogen 10 MG/DL (7-18); Calcium 8.3 MG/DL (8.5-10.1); Estimated Glom Filtration Rate 63 ML/MIN; Glucose 169 MG/DL (74-106); Osmolality,Calculated 277.7 MOS/KG (273-304)
[2019-07-15 19:32] LABS: Apearance,Urine CLEAR (Clear); Bilirubin,Urine Negative (Negative); Blood, Urine Negative (Negative); Glucose,Urine (UA) Negative (Negative); Ketones,Urine 5 mg/dL (Negative); Mucus,Urine Few /LPF (Occasional); Nitrite,Urine Negative (Negative); Protein,Urine 30 MG/DL; Squamous Epithelial Cell,Urine Occasional /HPF (0-10); Urine Color Amber (Yellow); Urine Specific Gravity 1.024 (1.001-1.035)
[2019-07-15 20:44] LABS: Sedimentation Rate-Westergren 51 MM/HR (0-30)
[2019-07-15] MEDS ORDERED: DEXTROSE 50% 25 GM/50 ML SYRINGE IV PRN ×2 (22:22→22:40)
[2019-07-15] MEDS ORDERED: ONDANSETRON 4 MG/2 ML VIAL IV PRN (22:22)
[2019-07-15] MEDS ORDERED: GLUCAGON 1 MG VIAL IM PRN (22:22)
[2019-07-15] MEDS: INSULIN NPH/REGULAR 70/30 100 UNIT/ML SUBCUT SCH (23:34)
[2019-07-15] MEDS: INSULIN LISPRO 100 UNIT/ML SUBCUT SCH (23:34)
[2019-07-16] MEDS: carvediloL 6.25 MG TABLET PO SCH ×3 (00:22→16:25)
[2019-07-16] MEDS: ACETAMINOPHEN 325 MG TABLET PO PRN (00:22)
[2019-07-16] MEDS: SODIUM CHLORIDE 0.9% 1,000 ML IV SCH ×2 (00:23→14:23)
[2019-07-16] MEDS: HEPARIN DRIP 25,000 UNITS/500 ML PREMIX IV SCH ×2 (00:34→16:39)
[2019-07-16 05:19] LABS: Basophils % 0.4 % (0.0-0.8); Eosinophils # 0.1 10*3/uL (0.0-0.87); Eosinophils % 1.3 % (0.00-10.9); Hematocrit 29.3 VOL% (35.7-47.0); Immature Granulocytes % 0.4 %; Immature Granulocytes Absolute 0.03 #; Lymphocytes # 2.1 10*3/uL (1.4-4.0); Lymphocytes % 31.5 % (21.3-54.2); Mean Corpuscular HGB Conc 30.7 GM/DL (32-36); Mean Corpuscular Volume 94.8 FL (87-102); Mean Platelet Volume 10.3 FL (9.6-12.0); Monocytes % 11.5 % (1.7-12.7); Neutrophils % 54.9 % (38.7-73.9); Platelet Count 263 T/CUMM (130-400); Red Blood Count 3.09 MC/CUMM (3.8-5.5); Red Cell Distribution Width 16.6 % (9.3-17.3); White Blood Count 6.7 T/CUMM (4-12)
[2019-07-16 05:33] LABS: Calcium 8.2 MG/DL (8.5-10.1); Osmolality,Calculated 278.7 MOS/KG (273-304)
[2019-07-16] MEDS: INSULIN LISPRO 100 UNIT/ML SUBCUT SCH ×4 (08:09→21:27)
[2019-07-16] MEDS: INSULIN NPH/REGULAR 70/30 100 UNIT/ML SUBCUT SCH ×2 (13:23→17:26)
[2019-07-16] MEDS: LOSARTAN 25 MG TABLET PO SCH (15:30)
[2019-07-16] MEDS: CLOPIDOGREL 75 MG TABLET PO SCH (15:30)
[2019-07-16] MEDS: AMOXICILLIN 500 MG CAPSULE PO SCH ×2 (15:30→21:28)
[2019-07-16] MEDS: ASPIRIN CHEW 81 MG TABLET PO SCH (15:30)
[2019-07-16] MEDS: PANTOPRAZOLE 40 MG TABLET PO SCH (17:26)
[2019-07-17] MEDS: SODIUM CHLORIDE 0.9% 1,000 ML IV SCH ×2 (03:39→15:58)
[2019-07-17] MEDS: INSULIN LISPRO 100 UNIT/ML SUBCUT SCH ×4 (08:28→22:06)
[2019-07-17] MEDS: INSULIN NPH/REGULAR 70/30 100 UNIT/ML SUBCUT SCH ×2 (09:04→17:37)
[2019-07-17] MEDS: carvediloL 6.25 MG TABLET PO SCH ×2 (09:05→15:59)
[2019-07-17] MEDS: LOSARTAN 25 MG TABLET PO SCH (09:05)
[2019-07-17] MEDS: AMOXICILLIN 500 MG CAPSULE PO SCH ×2 (09:05→21:41)
[2019-07-17] MEDS: CLOPIDOGREL 75 MG TABLET PO SCH (09:05)
[2019-07-17] MEDS: ASPIRIN CHEW 81 MG TABLET PO SCH (09:05)
[2019-07-17 09:19] LABS: Basophils % 0.5 % (0.0-0.8); Eosinophils # 0.1 10*3/uL (0.0-0.87); Eosinophils % 2.3 % (0.00-10.9); Hematocrit 27.6 VOL% (35.7-47.0); Hemoglobin 8.8 GM/DL (12.0-16.0); Immature Granulocytes % 0.7 %; Immature Granulocytes Absolute 0.04 #; Lymphocytes % 35.7 % (21.3-54.2); Mean Corpuscular HGB Conc 31.9 GM/DL (32-36); Mean Corpuscular Volume 92.3 FL (87-102); Mean Platelet Volume 9.7 FL (9.6-12.0); Monocytes % 12.3 % (1.7-12.7); Neutrophils % 48.5 % (38.7-73.9); Platelet Count 301 T/CUMM (130-400); Red Blood Count 2.99 MC/CUMM (3.8-5.5); Red Cell Distribution Width 16.4 % (9.3-17.3); White Blood Count 5.6 T/CUMM (4-12)
[2019-07-17] MEDS: HEPARIN DRIP 25,000 UNITS/500 ML PREMIX IV SCH (14:40)
[2019-07-17] MEDS: PANTOPRAZOLE 40 MG TABLET PO SCH (15:59)
[2019-07-17] MEDS: ACETAMINOPHEN 325 MG TABLET PO PRN (21:40)
[2019-07-18] MEDS: HEPARIN DRIP 25,000 UNITS/500 ML PREMIX IV SCH (01:46)
[2019-07-18] MEDS: SODIUM CHLORIDE 0.9% 1,000 ML IV SCH ×2 (05:54→18:11)
[2019-07-18] MEDS: INSULIN LISPRO 100 UNIT/ML SUBCUT SCH ×4 (07:54→22:46)
[2019-07-18 08:11] LABS: Basophils % 0.8 % (0.0-0.8); Eosinophils # 0.2 10*3/uL (0.0-0.87); Eosinophils % 3.3 % (0.00-10.9); Hematocrit 28.4 VOL% (35.7-47.0); Hemoglobin 8.7 GM/DL (12.0-16.0); Immature Granulocytes % 0.8 %; Immature Granulocytes Absolute 0.04 #; Lymphocytes # 1.8 10*3/uL (1.4-4.0); Lymphocytes % 35.4 % (21.3-54.2); Mean Corpuscular HGB Conc 30.6 GM/DL (32-36); Mean Corpuscular Volume 95.6 FL (87-102); Mean Platelet Volume 10.3 FL (9.6-12.0); Monocytes % 12.4 % (1.7-12.7); Neutrophils % 47.3 % (38.7-73.9); Platelet Count 337 T/CUMM (130-400); Red Blood Count 2.97 MC/CUMM (3.8-5.5); Red Cell Distribution Width 16.3 % (9.3-17.3); White Blood Count 5.2 T/CUMM (4-12)
[2019-07-18 08:27] LABS: Osmolality,Calculated 279.3 MOS/KG (273-304)
[2019-07-18 08:29] LABS: Eosinophils 4 % (0-10); Hypochromasia 1+; Lymphocytes 32 % (20-55); Segmented Neutrophils 58 % (50-85); Total Cells Counted 100
[2019-07-18 08:30] LABS: Macrocytosis 1+
[2019-07-18] MEDS: CLOPIDOGREL 75 MG TABLET PO SCH (09:00)
[2019-07-18] MEDS: ASPIRIN CHEW 81 MG TABLET PO SCH (09:00)
[2019-07-18] MEDS: LOSARTAN 25 MG TABLET PO SCH (09:00)
[2019-07-18] MEDS: AMOXICILLIN 500 MG CAPSULE PO SCH (09:00)
[2019-07-18] MEDS: carvediloL 6.25 MG TABLET PO SCH ×2 (09:00→18:25)
[2019-07-18] MEDS ORDERED: BICILLIN CR 1,200,000 UNIT/2 ML SYRINGE IM ONE (09:30)
[2019-07-18] MEDS: INSULIN NPH/REGULAR 70/30 100 UNIT/ML SUBCUT SCH ×2 (10:18→18:25)
[2019-07-18] MEDS: PANTOPRAZOLE 40 MG TABLET PO SCH (18:26)
[2019-07-19] MEDS: HEPARIN DRIP 25,000 UNITS/500 ML PREMIX IV SCH (00:39)
[2019-07-19 04:29] LABS: Apearance,Urine CLEAR (Clear); Bilirubin,Urine Negative (Negative); Blood, Urine Negative (Negative); Glucose,Urine (UA) 50 mg/dL (Negative); Ketones,Urine Negative (Negative); Mucus,Urine Occasional /LPF (Occasional); Nitrite,Urine Negative (Negative); Protein,Urine Negative; RBC,Urine 4 /HPF (0-4); Squamous Epithelial Cell,Urine Occasional /HPF (0-10); Urine Color Yellow (Yellow); Urine Specific Gravity 1.014 (1.001-1.035); WBC,Urine 1 /HPF (0-6)
[2019-07-19] MEDS: INSULIN LISPRO 100 UNIT/ML SUBCUT SCH ×4 (07:44→21:48)
[2019-07-19] MEDS: INSULIN NPH/REGULAR 70/30 100 UNIT/ML SUBCUT SCH ×2 (08:26→18:03)
[2019-07-19] MEDS: SODIUM CHLORIDE 0.9% 1,000 ML IV SCH ×2 (08:26→19:47)
[2019-07-19] MEDS: carvediloL 6.25 MG TABLET PO SCH ×2 (08:27→18:04)
[2019-07-19] MEDS: CLOPIDOGREL 75 MG TABLET PO SCH (08:27)
[2019-07-19] MEDS: ASPIRIN CHEW 81 MG TABLET PO SCH (08:27)
[2019-07-19] MEDS: LOSARTAN 25 MG TABLET PO SCH (08:27)
[2019-07-19] MEDS: PANTOPRAZOLE 40 MG TABLET PO SCH (18:04)
[2019-07-20 06:35] LABS: Basophils % 0.2 % (0.0-0.8); Eosinophils # 0.1 10*3/uL (0.0-0.87); Hematocrit 27.3 VOL% (35.7-47.0); Hemoglobin 8.5 GM/DL (12.0-16.0); Immature Granulocytes % 0.6 %; Immature Granulocytes Absolute 0.05 #; Lymphocytes # 2.7 10*3/uL (1.4-4.0); Lymphocytes % 31.9 % (21.3-54.2); Mean Corpuscular HGB Conc 31.1 GM/DL (32-36); Mean Corpuscular Volume 93.8 FL (87-102); Monocytes % 10.2 % (1.7-12.7); Neutrophils % 56.1 % (38.7-73.9); Platelet Count 399 T/CUMM (130-400); Red Blood Count 2.91 MC/CUMM (3.8-5.5); Red Cell Distribution Width 16.4 % (9.3-17.3); White Blood Count 8.4 T/CUMM (4-12)
[2019-07-20 06:38] LABS: Calcium 7.8 MG/DL (8.5-10.1); Osmolality,Calculated 279.3 MOS/KG (273-304)
[2019-07-20] MEDS: INSULIN LISPRO 100 UNIT/ML SUBCUT SCH ×4 (09:08→20:28)
[2019-07-20] MEDS: SODIUM CHLORIDE 0.9% 1,000 ML IV SCH (09:09)
[2019-07-20] MEDS: carvediloL 6.25 MG TABLET PO SCH (09:11)
[2019-07-20] MEDS: LOSARTAN 25 MG TABLET PO SCH (09:11)
[2019-07-20] MEDS: ASPIRIN CHEW 81 MG TABLET PO SCH (09:11)
[2019-07-20] MEDS: INSULIN NPH/REGULAR 70/30 100 UNIT/ML SUBCUT SCH ×2 (09:11→16:32)
[2019-07-20] MEDS: CLOPIDOGREL 75 MG TABLET PO SCH (09:12)
[2019-07-20] MEDS ORDERED: FUROSEMIDE 40 MG/4 ML VIAL IV ONE (13:07)
[2019-07-20] MEDS: LEVOFLOXACIN 750 MG TABLET PO SCH (16:31)
[2019-07-20] MEDS: PANTOPRAZOLE 40 MG TABLET PO SCH (16:31)
[2019-07-20] MEDS: carvediloL 12.5 MG TABLET PO SCH (16:31)
[2019-07-20] MEDS: DOCUSATE SODIUM 100 MG CAPSULE PO PRN (21:59)
[2019-07-21 05:33] LABS: Basophils % 0.4 % (0.0-0.8); Eosinophils # 0.1 10*3/uL (0.0-0.87); Eosinophils % 1.3 % (0.00-10.9); Hematocrit 29.4 VOL% (35.7-47.0); Hemoglobin 9.1 GM/DL (12.0-16.0); Immature Granulocytes % 0.7 %; Immature Granulocytes Absolute 0.06 #; Lymphocytes # 2.6 10*3/uL (1.4-4.0); Lymphocytes % 30.9 % (21.3-54.2); Mean Corpuscular Volume 94.5 FL (87-102); Mean Platelet Volume 10.1 FL (9.6-12.0); Monocytes % 11.2 % (1.7-12.7); Neutrophils % 55.5 % (38.7-73.9); Platelet Count 411 T/CUMM (130-400); Red Blood Count 3.11 MC/CUMM (3.8-5.5); Red Cell Distribution Width 16.3 % (9.3-17.3); White Blood Count 8.5 T/CUMM (4-12)
[2019-07-21 05:58] LABS: Osmolality,Calculated 274.5 MOS/KG (273-304)
[2019-07-21 06:42] LABS: Apearance,Urine Slightly Hazy (Clear); Bilirubin,Urine Negative (Negative); Blood, Urine Small mg/dL (Negative); Glucose,Urine (UA) Negative (Negative); Ketones,Urine Negative (Negative); Mucus,Urine Occasional /LPF (Occasional); Nitrite,Urine Negative (Negative); Protein,Urine Negative; RBC,Urine 8 /HPF (0-4); Squamous Epithelial Cell,Urine Occasional /HPF (0-10); Urine Color Straw (Yellow); Urine Specific Gravity 1.006 (1.001-1.035); Urine Urobilinogen < 2.0 EU/DL (0.2-1.0); WBC,Urine 468 /HPF (0-6)
[2019-07-21] MEDS: INSULIN LISPRO 100 UNIT/ML SUBCUT SCH ×4 (08:26→21:20)
[2019-07-21] MEDS: LOSARTAN 25 MG TABLET PO SCH (08:27)
[2019-07-21] MEDS: CLOPIDOGREL 75 MG TABLET PO SCH (08:27)
[2019-07-21] MEDS: carvediloL 12.5 MG TABLET PO SCH ×2 (08:27→17:12)
[2019-07-21] MEDS: INSULIN NPH/REGULAR 70/30 100 UNIT/ML SUBCUT SCH ×2 (08:27→17:12)
[2019-07-21] MEDS: ASPIRIN CHEW 81 MG TABLET PO SCH (08:27)
[2019-07-21] MEDS ORDERED: POTASSIUM CHLORIDE 20 MEQ/15 ML UDCUP PO ONE (10:29)
[2019-07-21] MEDS ORDERED: MAGNESIUM SULF RIDER 2 GM in PREMIX 1 EACH IV PRN (11:45)
[2019-07-21] MEDS ORDERED: MAGNESIUM SULF RIDER 4 GM in PREMIX 1 EACH IV PRN (11:45)
[2019-07-21] MEDS ORDERED: MAGNESIUM SULF RIDER 100 ML IV ONE (11:52)
[2019-07-21] MEDS: LEVOFLOXACIN 750 MG TABLET PO SCH (14:40)
[2019-07-21] MEDS: PANTOPRAZOLE 40 MG TABLET PO SCH (17:12)
[2019-07-21] MEDS: DOCUSATE SODIUM 100 MG CAPSULE PO PRN (22:08)
[2019-07-22 04:26] LABS: Basophils % 0.6 % (0.0-0.8); Eosinophils # 0.1 10*3/uL (0.0-0.87); Eosinophils % 1.2 % (0.00-10.9); Hematocrit 26.1 VOL% (35.7-47.0); Hemoglobin 8.4 GM/DL (12.0-16.0); Immature Granulocytes % 0.7 %; Immature Granulocytes Absolute 0.05 #; Lymphocytes # 2.6 10*3/uL (1.4-4.0); Lymphocytes % 38.1 % (21.3-54.2); Mean Corpuscular HGB Conc 32.2 GM/DL (32-36); Mean Corpuscular Volume 92.9 FL (87-102); Monocytes % 12.8 % (1.7-12.7); Neutrophils % 46.6 % (38.7-73.9); Platelet Count 384 T/CUMM (130-400); Red Blood Count 2.81 MC/CUMM (3.8-5.5); Red Cell Distribution Width 16.2 % (9.3-17.3); White Blood Count 6.8 T/CUMM (4-12)
[2019-07-22 04:38] LABS: Calcium 8.5 MG/DL (8.5-10.1); Osmolality,Calculated 280.3 MOS/KG (273-304)
[2019-07-22 04:50] LABS: Lymphocytes 32 % (20-55); Platelet Estimate Adequate; Segmented Neutrophils 54 % (50-85); Total Cells Counted 100
[2019-07-22 04:51] LABS: Hypochromasia 1+; Ovalocytes Slight
[2019-07-22] MEDS: INSULIN LISPRO 100 UNIT/ML SUBCUT SCH ×4 (08:00→21:12)
[2019-07-22] MEDS: INSULIN NPH/REGULAR 70/30 100 UNIT/ML SUBCUT SCH ×2 (08:00→17:47)
[2019-07-22] MEDS: ASPIRIN CHEW 81 MG TABLET PO SCH (08:41)
[2019-07-22] MEDS: LOSARTAN 25 MG TABLET PO SCH (08:41)
[2019-07-22] MEDS: CLOPIDOGREL 75 MG TABLET PO SCH (08:41)
[2019-07-22] MEDS: carvediloL 12.5 MG TABLET PO SCH ×2 (08:41→17:47)
[2019-07-22] MEDS: LEVOFLOXACIN 750 MG TABLET PO SCH (13:31)
[2019-07-22] MEDS ORDERED: SODIUM CHLORIDE 0.9% 1,000 ML IV PRN (15:23)
[2019-07-22] MEDS: PANTOPRAZOLE 40 MG TABLET PO SCH (17:47)
[2019-07-23 05:45] LABS: Basophils % 0.4 % (0.0-0.8); Eosinophils # 0.1 10*3/uL (0.0-0.87); Eosinophils % 1.2 % (0.00-10.9); Hematocrit 31.4 VOL% (35.7-47.0); Immature Granulocytes % 0.7 %; Immature Granulocytes Absolute 0.05 #; Lymphocytes # 2.9 10*3/uL (1.4-4.0); Lymphocytes % 37.5 % (21.3-54.2); Mean Corpuscular HGB Conc 31.8 GM/DL (32-36); Mean Platelet Volume 9.9 FL (9.6-12.0); Neutrophils % 47.2 % (38.7-73.9); Platelet Count 385 T/CUMM (130-400); Red Blood Count 3.45 MC/CUMM (3.8-5.5); Red Cell Distribution Width 16.3 % (9.3-17.3); White Blood Count 7.6 T/CUMM (4-12)
[2019-07-23 05:59] LABS: Calcium 8.5 MG/DL (8.5-10.1); Osmolality,Calculated 279.3 MOS/KG (273-304)
[2019-07-23 06:13] LABS: Anisocytosis 1+; Eosinophils 1 % (0-10); Hypochromasia Slight; Lymphocytes 35 % (20-55); Macrocytosis 1+; Platelet Estimate Normal; Segmented Neutrophils 53 % (50-85); Total Cells Counted 100
[2019-07-23] MEDS: INSULIN LISPRO 100 UNIT/ML SUBCUT SCH ×2 (08:08→11:53)
[2019-07-23] MEDS: INSULIN NPH/REGULAR 70/30 100 UNIT/ML SUBCUT SCH (08:11)
[2019-07-23] MEDS: ASPIRIN CHEW 81 MG TABLET PO SCH (08:18)
[2019-07-23] MEDS: LOSARTAN 25 MG TABLET PO SCH (08:18)
[2019-07-23] MEDS: carvediloL 12.5 MG TABLET PO SCH (08:18)
[2019-07-23] MEDS: CLOPIDOGREL 75 MG TABLET PO SCH (08:19)
[2019-07-23] MEDS ORDERED: guaiFENesin 200 MG/10 ML UDCUP PO PRN (10:12)
[2019-07-23 12:34] VITALS: BP 166/79
== END 2019-07-23 13:27 | disposition swing bed (61) | DRG 252 ==
LOC: N.ED 17:44 → N.EDINP 21:11 → SUATTDRO 21:11 → N.EDINP 22:55 → N.5E 23:37
PROVIDERS: ADMIT Internal Medicine; ATTEND Internal Medicine